=== PATIENT | male | born 2000 | race Caucasian/White ===

== ENCOUNTER 2020-08-27 03:22 | Emergency (ER) | payer MEDICAID, OTHER ==
[~2020-08-27] VITALS: Ht 61.3 cm; Wt 68.0 kg
[2020-08-27 03:40] VITALS: BP 138/84
--- NOTE | 2020-08-27 03:48 | ED Fall/Injury ---
General Chief Complaint: Trauma-Non Activation Stated Complaint: FALL AT HOME,HEAD,ARM,RT SIDE & TAILBONE PAIN Nursing Triage Note: PATIENT STATES SLIPPED ON WATER, FELL HIT HEAD. LACERATION RT FORHEAD. DENIES LOC Source: patient Exam Limitations: no limitations History of Present Illness Date Seen by Provider: Aug 27, 2020 Time Seen by Provider: 03:35 Initial Comments This 20-year-old young man presents to the emergency room with head injury after slipping and falling on some spilled water at his home. He states he did not want to come to the hospital but he was coerced by his friends. He reports drinking less than 1 full beer last night and does not appear intoxicated. He is alert and oriented. He has a minor contusion on the right forearm that is not troubling to him. He denies any other pain at this time. He reports feeling slightly dizzy at the time of the injury but denies any signs or symptoms of concussion now. The incident happened a few hours ago. Has a gaping laceration approximately 3 cm in length on the right frontal scalp. It is oozing serosanguineous fluid. On palpation bony structures appear firm and intact. He denies any neck pain or tenderness. I advised tetanus immunization and approximation with suture. Patient refused care. I again urged him to have the wound irrigated and repaired to prevent infection and improve healing. He declined. Allergies and Home Medications Patient Home Medication List Home Medication List Reviewed: Yes Review of Systems Review of Systems Constitutional: no symptoms reported Eyes: No Symptoms Reported Ears, Nose, Mouth, Throat: no symptoms reported Respiratory: no symptoms reported Cardiovascular: no symptoms reported Gastrointestinal: no symptoms reported Genitourinary: no symptoms reported Musculoskeletal: see HPI Skin: see HPI Psychiatric/Neurological: No Symptoms Reported Past Cbulsig-Pdvyta-Jqcjvw Hx Patient Social History Alcohol Use?: Yes Alcohol type: Beer Alcohol Frequency: Once in a while Past Medical History Surgeries: No (None reported) Physical Exam Vital Signs Vital Signs - First Documented 08/27/20 03:40 Temp 36.8 Pulse 110 Resp 16 B/P (MAP) 138/84 (102) Pulse Ox 100 O2 Delivery Room Air Capillary Refill : Less Than 3 Seconds Height, Weight, BMI Height: '" Weight: lbs. oz. kg; 180.00 BMI Method: General Appearance: WD/WN, no apparent distress HEENT: PERRL/EOMI, TMs normal, pharynx normal, other (Dental injury. 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, no motor/sensory deficits, alert, normal mood/affect, oriented x 3 Skin: normal color, warm/dry, other (See above) Nathanael Coma Score Best Eye Response: (4) Open Spontaneously Best Verbal Response: (5) Oriented Best Motor Response: (6) Obeys Commands Nathanael Total: 15 Progress/Results/Core Measures Results/Orders Vital Signs/I&O 08/27/20 03:40 Temp 36.8 Pulse 110 Resp 16 B/P (MAP) 138/84 (102) Pulse Ox 100 O2 Delivery Room Air Blood Pressure Mean: 102 Progress Progress Note : Time: 03:49 Progress Note Patient had a gaping laceration on the right scalp more than 3 cm in length with some subtle oozing of blood and serosanguineous fluid. I strongly advised him to have it irrigated and approximated with suture or julio. Patient declined these services. I inquired about his reasons. He did not express any specific reasons why he was declining the sutures. I again urged him to allow us to clean the wound and approximated. I offered an attempt with Steri-Strips as an alternative. Again, patient declined. I gave him Steri-Strips to take home with him. I also recommended a tetanus immunization which he also refused. He denies any symptoms of concussion at this time. He is alert and oriented and able to repeat back in the risks of refusing irrigation and repair. Among those risks were risk of infection, delayed healing, and significant scarring. Departure Impression Primary Impression: Laceration of scalp Qualified Codes: S01.01XA - Laceration without foreign body of scalp, init ial encounter Additional Impression: Fall on same level Qualified Codes: W18.30XA - Fall on same level, unspecified, initial encounter Disposition: HOME, SELF-CARE Condition: Stable Departure-Patient Inst. Decision time for Depature: 03:51 Referrals: NO,LOCAL PHYSICIAN (PCP/Family) Primary Care Physician Patient Instructions: Minor Head Injury (DC) Add. Discharge Instructions: When you return home irrigate the wound by rinsing it for several minutes in the shower. You may attempt to approximate the wound with Steri-Strips or the adhesive portion of a Band-Aid after the skin dries. After the initial washing of the wound, allow the wound to completely scab over before getting it wet again. Do not submerge your head until the wound is completely healed. Return to the ER if you have worsening symptoms or change your mind about having the wound stitched within the next few hours. Monitor the wound for signs of infection including increased redness, increased pain, puslike drainage, or fever. Return to the ER immediately if you notice the symptoms. Call with questions or concerns. Return to the ER if you have any other worsening of condition. All discharge instructions reviewed with patient and/or family. Voiced understanding. BROOKE FAITH MD Aug 27, 2020 03:48
== END 2020-08-27 04:00 | disposition home or self-care (01) ==
LOC: ER 03:27
DX: S01.01XA Laceration without foreign body of scalp, initial encounter (principal); R40.2410 Glasgow coma scale score 13-15, unspecified time; W18.30XA Fall on same level, unspecified, initial encounter
CPT/HCPCS: 99282

== ENCOUNTER 2020-09-09 22:36 | Emergency (ER) | payer MEDICAID ==
[~2020-09-09] VITALS: Ht 180 cm; Wt 68.0 kg
--- NOTE | 2020-09-10 00:41 | ED General ---
General Chief Complaint: Fever-Adult/Adol Stated Complaint: FEVER Nursing Triage Note: fever x2 days, wants covid test Source of Information: Patient Exam Limitations: No Limitations History of Present Illness Date Seen by Provider: Sep 09, 2020 Time Seen by Provider: 22:59 Allergies and Home Medications Allergies Coded Allergies: No Known Drug Allergies (Unverified , 09/09/20) Home Medications No Active Prescriptions or Reported Meds Past Lubeabz-Vwhgex-Wfqzgi Hx Patient Social History Tobacco Use?: Yes Substance use?: No Alcohol Use?: Yes Alcohol Frequency: Once in a while Pt feels they are or have been: No Past Medical History Surgery/Hospitalization HX: adhd Surgeries: No (None reported) Physical Exam Vital Signs Vital Signs - First Documented 09/09/20 22:40 Temp 38.1 Pulse 109 Resp 18 B/P (MAP) 126/88 (101) Pulse Ox 97 O2 Delivery Room Air Capillary Refill : Less Than 3 Seconds Height, Weight, BMI Height: '" Weight: lbs. oz. kg; 20.00 BMI Method: Progress/Results/Core Measures Suspected Sepsis SIRS Temperature: Pulse: 109 Respiratory Rate: 18 Blood Pressure 126 /88 Mean: 101 Results/Orders Lab Results Laboratory Tests Test 09/09/20 22:46 Range/Units Influenza Type A (RT-PCR) Not Detected Not Detecte Influenza Type B (RT-PCR) Not Detected Not Detecte SARS-CoV-2 RNA (RT-PCR) Detected H Not Detecte My Orders Orders - BROOKE FAITH MD Covid 19 Inhouse Test (09/09/20 22:59) Influenza A And B By Pcr (09/09/20 22:59) Vital Signs/I&O 09/09/20 22:40 Temp 38.1 Pulse 109 Resp 18 B/P (MAP) 126/88 (101) Pulse Ox 97 O2 Delivery Room Air Capillary Refill : Less Than 3 Seconds Blood Pressure Mean: 101 Departure Impression Primary Impression: COVID-19 Disposition: 01 HOME, SELF-CARE Condition: Improved Departure-Patient Inst. Decision time for Depature: 00:39 Referrals: NO,LOCAL PHYSICIAN (PCP/Family) Primary Care Physician Patient Instructions: COVID-19 Overview Add. Discharge Instructions: Drink plenty of clear liquids to stay well-hydrated. For pain and fever you may take ibuprofen up to 600 mg every 6 hours and/or Tylenol (acetaminophen) up to 1000 mg every 6 hours as needed. Supplements such as a multivitamin may be helpful to boost your immune system while you recover. It is very important that you remain in quarantine for at least 10 days from the onset of your symptoms and until your symptoms resolve. Close contacts should also remain in quarantine for 10 days from their last contact with you. Call with questions or concerns. Return to the ER if you have worsening symptoms. All discharge instructions reviewed with patient and/or family. Voiced understanding. Scripts No Active Prescriptions or Reported Meds Work/School Note: Work Release Form Date Seen in the Emergency Department: Sep 10, 2020 Return to Work: Sep 16, 2020 Other Restrictions Listed Below: May return after 10-day quarantine from [place] [id number] if symptoms improved BROOKE FAITH MD Sep 10, 2020 00:41
[2020-09-10 00:45] VITALS: BP 129/81
== END 2020-09-10 00:46 | disposition home or self-care (01) ==
LOC: EDUNIT# 22:36 → ER 22:37
DX: U07.1 COVID-19 (principal)
CPT/HCPCS: 87636; 99282